=== PATIENT | female | born 1950 | race American Indian/Alaskan Native ===

== ENCOUNTER 2018-06-19 13:57 | Emergency (ER) | payer SELFPAY ==
[2018-06-19 16:01] LABS: Amphetamine Screen,Urine PRESUMPTIVE NEGATIVE; Benzodiazepines Screen,Urine PRESUMPTIVE NEGATIVE; Cannabinoid Screen,Urine PRESUMPTIVE NEGATIVE; Cocaine Screen,Urine PRESUMPTIVE NEGATIVE; Methadone Screen,Urine PRESUMPTIVE NEGATIVE; Opiate Screen,Urine PRESUMPTIVE NEGATIVE
[2018-06-19 16:02] LABS: Bilirubin,Urine NEG (Negative); Blood,Urine NEG (Negative); Color,Urine Yellow (Yellow); Protein,Urine <15 mg/dL mg/dL (Negative); Urobilinogen,Urine < 2.0 mg/dL (<2.0)
[2018-06-19 16:06] LABS: Basophils % (Auto) 0.4 % (0.0-1.8); Eosinophils # (Auto) 0.1 K/mm3 (0.0-0.4); Eosinophils % (Auto) 2.1 % (0.0-4.3); Hematocrit 38.7 % (30.3-42.9); Hemoglobin 12.6 gm/dl (10.1-14.3); Lymphocytes # (Auto) 1.9 K/mm3 (1.2-5.4); Mean Corpuscular HGB Conc 33 % (30-34); Mean Corpuscular Volume 87 fl (79-97); Monocytes # (Auto) 0.4 K/mm3 (0.0-0.8); Monocytes % (Auto) 8.5 % (0.0-7.3); Platelet Count 242 K/mm3 (140-440); Red Blood Count 4.45 M/mm3 (3.65-5.03)
[2018-06-19 16:07] LABS: BUN/Creatinine Ratio 17; Blood Urea Nitrogen 15 mg/dL (7-17); Calcium 9.7 mg/dL (8.4-10.2); Hemolysis Index 18
[2018-06-19] MEDS ORDERED: NACL 0.9% 1000 ML 1,000 ML IV ONE (16:58)
[2018-06-19] MEDS ORDERED: LEVAQUIN PO ONE (16:58)
--- NOTE | 2018-06-19 17:04 | Emergency Department Report ---
ED Psych HPI - General Chief Complaint: Psych Stated Complaint: MENTAL HEALTH Time Seen by Provider: 06/19/18 16:11 Source: patient Mode of arrival: Ambulatory - History of Present Illness Initial Comments: 67-year-old female with history of bipolar disorder presents to the ED for mental health evaluation. Patient states "they said I need a mental health evaluation. "I then asked the patient who is "they," patient then replied "God, I guess!" Patient states she is not currently on any medications for her bipolar disorder. Patient denies SI, HI. She states she sometimes hears voices. Speech is pressured and disorganized. Complaint: other (requesting mental health evaluation) -: unknown Associated Psychiatric Symptoms: racing thoughts, auditory hallucinations History of same: Yes Improves With: none Worsens With: none Context: not taking psychiatric Associated Symptoms: denies other symptoms Treatments Prior to Arrival: none - Related Data Allergies Allergy/AdvReac Type Severity Reaction Status Date / Time amitriptyline [From Elavil] Allergy Rash Verified 06/19/18 14:48 ED Review of Systems ROS: Stated complaint: MENTAL HEALTH Other details as noted in HPI Comment: All other systems reviewed and negative Psychiatric: auditory hallucinations. denies: visual hallucinations, homicidal thoughts, suicidal thoughts ED Past Medical Hx - Past Medical History Previous Medical History?: Yes Hx Diabetes: Yes (resolved?) Hx Psychiatric Treatment: Yes (bipolar. depression) - Surgical History Past Surgical History?: Yes Additional Surgical History: partial hysterectomy - Social History Smoking Status: Former Smoker Substance Use Type: None ED Physical Exam - General Limitations: No Limitations General appearance: alert, in no apparent distress - Head Head exam: Present: atraumatic, normocephalic - Eye Eye exam: Present: normal appearance - ENT ENT exam: Present: mucous membranes moist - Neck Neck exam: Present: normal inspection - Respiratory Respiratory exam: Present: normal lung sounds bilaterally. Absent: respiratory distress - Cardiovascular Cardiovascular Exam: Present: normal rhythm, tachycardia - GI/Abdominal GI/Abdominal exam: Present: soft. Absent: tenderness - Extremities Exam Extremities exam: Present: normal inspection - Neurological Exam Neurological exam: Present: alert, oriented X3 - Psychiatric Psychiatric exam: Present: normal affect, normal mood, other (pressured speech, disorganized thoughts) - Skin Skin exam: Present: warm, dry, intact, normal color ED Course Vital Signs 1206/19/18 06/20/18 14:49 19:00 02:39 Temperature 98.3 F 98.6 F 98.3 F Pulse Rate 110 H 91 H 89 Respiratory 18 16 18 Rate Blood Pressure 179/81 Blood Pressure 134/84 145/76 [Left] O2 Sat by Pulse 98 97 98 Oximetry 06/20/18 10:00 Temperature 98.3 F Pulse Rate 89 Respiratory 18 Rate Blood Pressure Blood Pressure 145/76 [Left] O2 Sat by Pulse 98 Oximetry ED Medical Decision Making - Lab Data Result diagrams: 06/19/18 15:41 06/19/18 15:41 - Medical Decision Making 67-year-old female with history of bipolar disorder presents to ED for psychiatric evaluation. Patient seemed to be manic on exam. Patient placed on 1013. Labs show hyperglycemia and UTI. Patient given IV fluids and insulin, placed on metformin twice a day. Repeat glucose in the 262. Patient given Levaquin for her UTI. Patient is medically clear for mental health evaluation. Will dispo per psych. - Differential Diagnosis bipolar, je, psychosis Critical care attestation.: If time is entered above; I have spent that time in minutes in the direct care of this critically ill patient, excluding procedure time. ED Disposition Clinical Impression: Bipolar disorder, Medical clearance for psychiatric admission Disposition: [id number] PSY HOSP/PSY UNIT Is pt being admited?: No Condition: Stable Referrals: PRIMARY CAREMD [Primary Care Provider] - 3-5 Days
[2018-06-19] MEDS ORDERED: HumuLIN R ONE (17:37)
[2018-06-19] MEDS ORDERED: HumuLIN R IV ONE (17:56)
[2018-06-19] MEDS: GLUCOPHAGE PO ONE (23:57)
[2018-06-20] MEDS: GLUCOPHAGE PO ONE (00:38)
--- NOTE | 2018-06-20 12:08 | Consultation ---
History of Present Illness - Reason for Consult Consult date: 06/20/18 Reason for consult: Mental Health Evaluation Requesting physician: CAMILO FARLEY - Chief Complaint Chief complaint: "I'm okay" - History of Present Psychiatric Illness 67-year-old AA female with history of bipolar disorder presents to the ED for mental health evaluation. Today the patient was hyper verbal and delusional during the assessment. She was asked about why she was brought to the ER. She had to be redirected several times to keep her on topic. She stated that something is in her mouth, but nothing was observed in or around the patient's mouth. She stated something reference to "God" that was not logical. The patient isn't a good historian at this time. No gestures of SI/HI's. Medications and Allergies Allergies Allergy/AdvReac Type Severity Reaction Status Date / Time amitriptyline [From Elavil] Allergy Rash Verified 06/19/18 14:48 Active Meds: Active Medications Levofloxacin (Levaquin) 500 mg PO QDAY ONE Stop: 06/20/18 16:01 Past psychiatric history - Past Medical History Past Medical History: diabetes Past Surgical History: No surgical history - past Psychiatric treatment and history psychiatric treatment history: Inpatient psy services per the patient. Denies a fam psy hx. - Social History Social history: lives with family Mental Status Exam - Vital signs Last Vital Signs Temp 98.3 F 06/20/18 10:00 Pulse 89 06/20/18 10:00 Resp 18 06/20/18 10:00 BP 145/76 06/20/18 10:00 Pulse Ox 98 06/20/18 10:00 - Exam Narrative exam: MSE: Appearance: calm Behavior: regular eye contact Speech: hyper verbal Mood: euphoric Affect: congruent to mood Thought Process: tangential Thought Content: no gestures of SI/HI's and AVH's, grandiose, delusional Motor Activity: ambulatory Cognition: A/O x 3 Insight: poor Judgment: poor Results Result Diagrams: 06/19/18 15:41 06/19/18 15:41 Abnormal lab results 06/19/18 06/19/18 06/19/18 Range/Units 15:19 15:41 15:41 RDW (13.2-15.2) % Lymph % (Auto) (13.4-35.0) % Kemper % (Auto) (0.0-7.3) % Sodium (137-145) mmol/L Glucose (65-100) mg/dL POC Glucose (70-105) Urine WBC (Auto) 60.0 H (0.0-6.0) /HPF Salicylates < 0.3 L (2.8-20.0) mg/dL Acetaminophen < 5.0 L (10.0-30.0) ug/mL 06/19/18 06/19/18 06/19/18 Range/Units 15:41 15:41 17:32 RDW 13.0 L (13.2-15.2) % Lymph % (Auto) 36.0 H (13.4-35.0) % Kemper % (Auto) 8.5 H (0.0-7.3) % Sodium 135 L (137-145) mmol/L Glucose 411 H (65-100) mg/dL POC Glucose 331 H (70-105) Urine WBC (Auto) (0.0-6.0) /HPF Salicylates (2.8-20.0) mg/dL Acetaminophen (10.0-30.0) ug/mL 06/19/18 Range/Units 23:29 RDW (13.2-15.2) % Lymph % (Auto) (13.4-35.0) % Kemper % (Auto) (0.0-7.3) % Sodium (137-145) mmol/L Glucose (65-100) mg/dL POC Glucose 262 H (70-105) Urine WBC (Auto) (0.0-6.0) /HPF Salicylates (2.8-20.0) mg/dL Acetaminophen (10.0-30.0) ug/mL All other labs normal. Assessment and Plan Assessment and plan: Impression: Unspecified Mood DO with psy features. Today the patient was hyper verbal and delusional during the assessment. DDx: Bipolar DO with psychosis Recommendation/Plan: Continue 1013 and start Zyprexa 5 mg PO HS for mood/psychosis. Discussed possible metabolic side effects of Zyprexa with the patient. Dispo:The patient was referred to inpatient psy services. Staffed with Dr Wilkes.
[2018-06-20] MEDS ORDERED: HumuLIN R ONE (12:44)
[2018-06-20] MEDS ORDERED: HumuLIN R IV ONE (12:46)
[2018-06-20] MEDS ORDERED: LEVAQUIN PO ONE (16:00)
[2018-06-20] MEDS ORDERED: TYLENOL PO PRN (16:28)
[2018-06-20] MEDS ORDERED: TYLENOL ONE (16:28)
[2018-06-20] MEDS ORDERED: HumuLIN R SUB-Q PRN (18:10)
[2018-06-20] MEDS ORDERED: HCTZ PO ONE (20:18)
[2018-06-21 09:41] VITALS: BP 155/86
--- NOTE | 2018-06-21 10:57 | Progress Note ---
Subjective - Reason for Consult Consult date: 06/21/18 Reason for consult: Psychiatry Follow-up - Chief Complaint Chief complaint: "Coralo" 67-year-old AA female with history of bipolar disorder presents to the ED for mental health evaluation. Today the patient is clam, but still hyper verbal during the assessment. She had to be redirected several times to keep her on topic. Her answers were not relevant to questions asked of her. She denies SI/HI's and AVH's. No indications of side effects of her medication. Mental Status Exam - Vital signs Last Vital Signs Temp 98.1 F 06/21/18 08:00 Pulse 89 06/21/18 08:00 Resp 18 06/21/18 08:00 BP 155/86 06/21/18 08:00 Pulse Ox 100 06/21/18 08:00 - Exam Narrative exam: MSE: Appearance: calm Behavior: regular eye contact Speech: hyper verbal Mood: euphoric Affect: congruent to mood Thought Process: tangential, loose associations Thought Content: denies SI/HI's and AVH's, grandiose, delusional Motor Activity: ambulatory Cognition: A/O x 3 Insight: poor Judgment: poor Assessment and Plan Impression: Unspecified Mood DO with psy features. Today the patient is cooperative, but still hyper verbal during the assessment. DDx: Bipolar DO with psychosis Recommendation/Plan: Continue 1013 and Zyprexa 5 mg PO HS for mood/psychosis. Discussed possible metabolic side effects of Zyprexa with the patient. Dispo:The patient was referred to inpatient psy services. Will staff with Dr Bradley Huston.
== END 2018-06-21 14:32 ==
LOC: ED 13:57 → EEVIPCON 13:57 → ED 06-21 14:32
DX: F31.9 Bipolar disorder, unspecified (principal); F39 Unspecified mood [affective] disorder; E11.9 Type 2 diabetes mellitus without complications; Z90.711 Acquired absence of uterus with remaining cervical stump; Z88.8 Allergy status to other drugs, medicaments and biological substances; Z79.84 Long term (current) use of oral hypoglycemic drugs
CPT/HCPCS: 36415; 80048; 80307; 81001; 82962; 85025; 96361; 96374; 96376; 99285; G0480; J7030; 80320; J1815